=== PATIENT | male | born 1960 | race African-American/Black ===

== ENCOUNTER 2017-06-06 06:03 | Inpatient (IN) | payer BC, MEDICAID ==
[~2017-06-06] VITALS: Ht 182.9 cm; Wt 58.5 kg
[2017-06-06] MEDS ORDERED: ONDANSETRON HCL 4MG/2ML VIAL IV STA (06:35)
[2017-06-06] MEDS ORDERED: SODIUM CHLORIDE 0.9% 1,000 ML IV ONE (06:35)
[2017-06-06] MEDS ORDERED: MORPHINE SULFATE 4 MG/ML CPJ (NOT FOR IM USE) IV STA (06:35)
[2017-06-06 06:53] LABS: HEMATOCRIT. 33.5 % (42.0-52.0); HEMOGLOBIN. 11.5 g/dL (14.0-18.0); MEAN CORPUSCULAR HEMOGLOBIN 29.8 pg (28.0-32.0); MEAN CORPUSCULAR VOLUME 87.1 fL (80.0-94.0); MEAN PLATELET VOLUME 8.4 fl (7.4-10.4); PLATELET 144 x1000/uL (130-400); RED BLOOD CELL COUNT 3.84 mill/uL (4.7-6.1); RED CELL DISTRIBUTION WIDTH 16.5 % (11.6-14.6)
[2017-06-06 07:01] LABS: INR 1.1; PROTHROMBIN TIME 11.7 sec (9.4-11.6)
[2017-06-06 07:03] LABS: CARBON DIOXIDE 28 mEq/L (21-32); CHLORIDE 97 mEq/L (98-107)
[2017-06-06 07:10] LABS: ETHANOL BLOOD < 10 mg/dL; TROPONIN I < 0.02 ng/mL (0.00-0.04)
[2017-06-06] MEDS ORDERED: CLINDAMYCIN 600 MG in DEXTROSE 5% WATER 50 ML IV ONE (07:30)
[2017-06-06] MEDS ORDERED: SODIUM CHLORIDE 0.9% 1000ML BAG (SEPSIS BOLUS) IV ONE (07:30)
[2017-06-06] MEDS ORDERED: CEFTRIAXONE 1 G PREMIX 50 ML IV ONE (07:30)
[2017-06-06] MEDS ORDERED: CLINDAMYCIN 600MG PREMIX 50 ML IV SCH (08:15)
[2017-06-06] MEDS ORDERED: IOHEXOL-300 100 ML BOTTLE ONE (08:36)
[2017-06-06 08:42] LABS: PLATELET ESTIMATE NORMAL
[2017-06-06 10:00] VITALS: BP 87/56
[2017-06-06 10:02] LABS: CLARITY URINE CLEAR (CLEAR); COLOR URINE YELLOW (YELLOW); GLUCOSE URINE 3+ (NEGATIVE); KETONES URINE NEGATIVE (NEGATIVE); LEUKOCYTE ESTERASE URINE NEGATIVE (NEGATIVE); NITRITE URINE NEGATIVE (NEGATIVE); OCCULT BLOOD URINE NEGATIVE (NEGATIVE); PROTEIN URINE NEGATIVE (NEGATIVE); SPECIFIC GRAVITY URINE 1.018 (1.005-1.030); UROBILINOGEN URINE 0.2 E.U./dL (0.2-1.0)
[2017-06-06 10:21] LABS: *AMPHETAMINES SCREEN URINE NEGATIVE (NEGATIVE); *BARBITURATES SCREEN URINE NEGATIVE (NEGATIVE); *BENZODIAZEPINES SCREEN URINE NEGATIVE (NEGATIVE); *COCAINE SCREEN URINE NEGATIVE (NEGATIVE); CANNABINOID URINE SCREEN NEGATIVE (NEGATIVE); METHADONE URINE SCREEN NEGATIVE (NEGATIVE); OPIATES URINE SCREEN PRESUMTIVE POSITIVE (NEGATIVE); PHENCYCLIDINE URINE SCREEN NEGATIVE (NEGATIVE)
[2017-06-06] MEDS ORDERED: DEXTROSE 50% WATER 50ML SYRINGE IV PRN (10:45)
[2017-06-06] MEDS ORDERED: SITA1TAB6 PO (11:03)
[2017-06-06 11:30] VITALS: BP 87/56
[2017-06-06] MEDS ORDERED: IPRATROPIUM/ALBUTEROL 0.5-3(2.5)MG/3ML NEB HHN PRN (11:30)
[2017-06-06] MEDS ORDERED: BLOOD SUGAR DIAGNOSTIC STRIP TEST SCH (11:45)
[2017-06-06] MEDS: BLOOD SUGAR DIAGNOSTIC STRIP TEST SCH ×3 (12:41→20:31)
[2017-06-06 12:47] VITALS: BP 87/56
[2017-06-06] MEDS ORDERED: NICOTINE 21MG PATCH TD SCH (13:00)
[2017-06-06 13:07] LABS: HEPATITIS B SURFACE ANTIGEN NEGATIVE
[2017-06-06] MEDS: ENOXAPARIN 40MG/0.4ML SYR SUBCUT SCH (13:25)
[2017-06-06] MEDS: AMPICILLIN SOD IV SCH ×2 (13:26→18:25)
[2017-06-06] MEDS: WATER IV SCH ×2 (13:26→18:25)
[2017-06-06] MEDS: SULBACTAM NA IV SCH ×2 (13:26→18:25)
[2017-06-06] MEDS: DEXT 5% IV SCH ×2 (13:26→18:25)
[2017-06-06] MEDS: INSULIN LISPRO 100 UNITS/ML SUBCUT SCH ×3 (13:27→20:30)
[2017-06-06 13:36] LABS: HEPATITIS A AB IGM NEGATIVE (NEGATIVE)
[2017-06-06 14:07] LABS: HEPATITIS B CORE AB IGM REACTIVE
[2017-06-06] MEDS: IPRATROPIUM/ALBUTEROL 0.5-3(2.5)MG/3ML NEB HHN SCH ×2 (14:31→21:19)
[2017-06-06] MEDS: ACETYLCYSTEINE 100MG/ML 10% VIAL 4ML INH SCH ×2 (14:31→21:23)
[2017-06-06] MEDS ORDERED: DOCUSATE SODIUM 100MG CAPSULE PO PRN (15:00)
[2017-06-06] MEDS ORDERED: CLONIDINE 0.1MG TABLET PO PRN (15:00)
[2017-06-06] MEDS ORDERED: MAGNESIUM/ALUMINUM HYDROXIDE/SIMETHICONE 30ML UDC PO PRN (15:00)
[2017-06-06] MEDS ORDERED: IPRATROPIUM/ALBUTEROL 0.5-3(2.5)MG/3ML NEB INH PRN (15:00)
[2017-06-06] MEDS ORDERED: ENOXAPARIN 40MG/0.4ML SYR SUBCUT SCH (15:00)
[2017-06-06] MEDS ORDERED: ONDANSETRON HCL 4MG/2ML VIAL IV PRN (15:00)
[2017-06-06] MEDS: SODIUM CHLORIDE 0.9% 1,000 ML IV SCH (15:25)
[2017-06-06] MEDS: HYDROCODONE/ACETAMINOPHEN 5/325MG TABLET PO PRN (15:43)
[2017-06-06 16:00] VITALS: BP 99/62
[2017-06-06 20:00] VITALS: BP 97/59
[2017-06-06] MEDS: PROMETHAZINE/DEXTROMETHORPHAN 6.25-15MG/5ML BOTTLE 120ML PO SCH (20:06)
[2017-06-06] MEDS: ACETAMINOPHEN 325MG TABLET PO PRN (20:40)
[2017-06-06 23:18] LABS: CREATINE KINASE 31 IU/L (39-308); CREATINE KINASE MB FRACTION 0.8 ng/mL (0.5-3.6); TROPONIN I < 0.02 ng/mL (0.00-0.04)
[2017-06-07] VITALS: BP 92/53
[2017-06-07] MEDS: DEXT 5% IV SCH ×4 (00:06→20:41)
[2017-06-07] MEDS: WATER IV SCH ×4 (00:06→20:41)
[2017-06-07] MEDS: AMPICILLIN SOD IV SCH ×4 (00:06→20:41)
[2017-06-07] MEDS: SULBACTAM NA IV SCH ×4 (00:06→20:41)
[2017-06-07] MEDS: IPRATROPIUM/ALBUTEROL 0.5-3(2.5)MG/3ML NEB HHN SCH ×4 (03:00→21:03)
[2017-06-07 04:00] VITALS: BP 103/68
[2017-06-07] MEDS ORDERED: VANCOMYCIN 1500MG in DEXTROSE 5% WATER 250ML IV SCH (04:00)
[2017-06-07] MEDS: SODIUM CHLORIDE 0.9% 1,000 ML IV SCH (04:08)
[2017-06-07] MEDS: PROMETHAZINE/DEXTROMETHORPHAN 6.25-15MG/5ML BOTTLE 120ML PO SCH ×4 (04:08→20:41)
[2017-06-07 06:23] LABS: HEMATOCRIT. 30.6 % (42.0-52.0); HEMOGLOBIN. 10.3 g/dL (14.0-18.0); MEAN CORPUSCULAR HEMOGLOBIN 29.2 pg (28.0-32.0); MEAN PLATELET VOLUME 9.2 fl (7.4-10.4); PLATELET 146 x1000/uL (130-400); RED BLOOD CELL COUNT 3.52 mill/uL (4.7-6.1); RED CELL DISTRIBUTION WIDTH 16.8 % (11.6-14.6)
[2017-06-07] MEDS: INSULIN LISPRO 100 UNITS/ML SUBCUT SCH ×4 (06:34→22:26)
[2017-06-07] MEDS: BLOOD SUGAR DIAGNOSTIC STRIP TEST SCH ×4 (06:34→21:00)
[2017-06-07 08:00] VITALS: BP 102/68
[2017-06-07] MEDS: NICOTINE 21MG PATCH TD SCH (08:21)
[2017-06-07] MEDS: ENOXAPARIN 40MG/0.4ML SYR SUBCUT SCH (08:22)
[2017-06-07 08:36] LABS: CARBON DIOXIDE 26 mEq/L (21-32); CHLORIDE 103 mEq/L (98-107); CREATINE KINASE 20 IU/L (39-308); HDL CHOLESTEROL 47 mg/dL (40-59); LDL CHOLESTEROL 27 mg/dL (5-100)
[2017-06-07 08:41] LABS: CREATINE KINASE MB FRACTION 0.9 ng/mL (0.5-3.6); TROPONIN I < 0.02 ng/mL (0.00-0.04)
[2017-06-07] MEDS: ACETYLCYSTEINE 100MG/ML 10% VIAL 4ML INH SCH (09:18)
[2017-06-07] MEDS: HYDROCODONE/ACETAMINOPHEN 5/325MG TABLET PO PRN (11:16)
[2017-06-07 12:00] VITALS: BP 103/64
[2017-06-07] MEDS ORDERED: POTASSIUM CHLORIDE 20MEQ TABLET SR PO NR (12:00)
[2017-06-07 16:00] VITALS: BP 94/54
[2017-06-07] MEDS ORDERED: VANCOMYCIN 1 G PREMIX 200 ML IV SCH (16:00)
[2017-06-07] MEDS: VANCOMYCIN 1 G PREMIX 200 ML IV SCH ×2 (16:33→22:46)
[2017-06-07] MEDS: ACETAMINOPHEN 325MG TABLET PO PRN (16:34)
[2017-06-07 17:15] LABS: PLATELET ESTIMATE NORMAL
[2017-06-07 20:00] VITALS: BP 138/60
[2017-06-08] MEDS: WATER IV SCH ×4 (02:50→20:18)
[2017-06-08] MEDS: DEXT 5% IV SCH ×4 (02:50→20:18)
[2017-06-08] MEDS: AMPICILLIN SOD IV SCH ×4 (02:50→20:18)
[2017-06-08] MEDS: SULBACTAM NA IV SCH ×4 (02:50→20:18)
[2017-06-08] MEDS: PROMETHAZINE/DEXTROMETHORPHAN 6.25-15MG/5ML BOTTLE 120ML PO SCH ×4 (02:50→20:18)
[2017-06-08] MEDS: SODIUM CHLORIDE 0.9% 1,000 ML IV SCH ×3 (03:01→21:15)
[2017-06-08] MEDS: IPRATROPIUM/ALBUTEROL 0.5-3(2.5)MG/3ML NEB HHN SCH ×4 (03:04→20:42)
[2017-06-08 04:00] VITALS: BP 109/71
[2017-06-08] MEDS: VANCOMYCIN 1 G PREMIX 200 ML IV SCH ×3 (06:40→21:11)
[2017-06-08 06:44] LABS: HEMATOCRIT. 27.9 % (42.0-52.0); HEMOGLOBIN. 9.6 g/dL (14.0-18.0); MEAN CORPUSCULAR HEMOGLOBIN 29.6 pg (28.0-32.0); MEAN CORPUSCULAR VOLUME 86.3 fL (80.0-94.0); PLATELET 135 x1000/uL (130-400); RED BLOOD CELL COUNT 3.23 mill/uL (4.7-6.1); RED CELL DISTRIBUTION WIDTH 16.9 % (11.6-14.6)
[2017-06-08] MEDS: INSULIN LISPRO 100 UNITS/ML SUBCUT SCH ×4 (06:45→21:00)
[2017-06-08] MEDS: BLOOD SUGAR DIAGNOSTIC STRIP TEST SCH ×4 (06:45→21:09)
[2017-06-08 07:46] LABS: CHLORIDE 105 mEq/L (98-107)
[2017-06-08 08:00] VITALS: BP 106/68
[2017-06-08 08:02] LABS: CARBON DIOXIDE 27 mEq/L (21-32)
[2017-06-08] MEDS: NICOTINE 21MG PATCH TD SCH (08:47)
[2017-06-08] MEDS: ENOXAPARIN 40MG/0.4ML SYR SUBCUT SCH (08:47)
[2017-06-08] MEDS ORDERED: POTASSIUM CHLORIDE 20MEQ TABLET SR PO NR (11:45)
[2017-06-08 12:27] VITALS: BP 116/75
[2017-06-08 12:35] LABS: PLATELET ESTIMATE NORMAL
[2017-06-08 16:17] VITALS: BP 122/71
[2017-06-08 20:00] VITALS: BP 127/82
[2017-06-08] MEDS: HYDROCODONE/ACETAMINOPHEN 5/325MG TABLET PO PRN (21:40)
[2017-06-09] VITALS: BP 112/72
[2017-06-09] MEDS: IPRATROPIUM/ALBUTEROL 0.5-3(2.5)MG/3ML NEB HHN SCH ×4 (02:10→20:39)
[2017-06-09] MEDS: DEXT 5% IV SCH ×4 (02:20→20:21)
[2017-06-09] MEDS: WATER IV SCH ×4 (02:20→20:21)
[2017-06-09] MEDS: AMPICILLIN SOD IV SCH ×4 (02:20→20:21)
[2017-06-09] MEDS: SULBACTAM NA IV SCH ×4 (02:20→20:21)
[2017-06-09] MEDS: PROMETHAZINE/DEXTROMETHORPHAN 6.25-15MG/5ML BOTTLE 120ML PO SCH ×4 (02:22→20:21)
[2017-06-09 04:00] VITALS: BP 131/87
[2017-06-09 05:49] LABS: HEMATOCRIT. 27.6 % (42.0-52.0); HEMOGLOBIN. 9.1 g/dL (14.0-18.0); MEAN CORPUSCULAR HEMOGLOBIN 28.7 pg (28.0-32.0); MEAN CORPUSCULAR VOLUME 87.1 fL (80.0-94.0); PLATELET 145 x1000/uL (130-400); RED BLOOD CELL COUNT 3.16 mill/uL (4.7-6.1); RED CELL DISTRIBUTION WIDTH 16.6 % (11.6-14.6)
[2017-06-09 06:25] LABS: CHLORIDE 104 mEq/L (98-107)
[2017-06-09 06:35] LABS: CARBON DIOXIDE 25 mEq/L (21-32); VANCOMYCIN TROUGH 15.5 ug/mL (5.0-10.0)
[2017-06-09] MEDS: BLOOD SUGAR DIAGNOSTIC STRIP TEST SCH ×4 (06:42→20:45)
[2017-06-09] MEDS: VANCOMYCIN 1 G PREMIX 200 ML IV SCH (06:45)
[2017-06-09] MEDS: INSULIN LISPRO 100 UNITS/ML SUBCUT SCH ×4 (06:48→21:28)
[2017-06-09] MEDS: SODIUM CHLORIDE 0.9% 1,000 ML IV SCH ×2 (06:49→18:45)
[2017-06-09 08:00] VITALS: BP 137/87
[2017-06-09] MEDS: ENOXAPARIN 40MG/0.4ML SYR SUBCUT SCH (08:40)
[2017-06-09] MEDS: NICOTINE 21MG PATCH TD SCH (08:41)
[2017-06-09 12:00] VITALS: BP 137/82
[2017-06-09] MEDS: HYDROCODONE/ACETAMINOPHEN 5/325MG TABLET PO PRN ×3 (12:18→22:46)
[2017-06-09] MEDS: ACETAMINOPHEN 325MG TABLET PO PRN ×2 (12:18→20:21)
[2017-06-09] MEDS: VANCOMYCIN 1250MG in DEXTROSE 5% WATER 250ML IV SCH ×2 (15:06→21:27)
[2017-06-09] MEDS ORDERED: POTASSIUM CHLORIDE 20MEQ TABLET SR PO NR (15:15)
[2017-06-09 17:21] LABS: PLATELET ESTIMATE NORMAL
[2017-06-09 20:00] VITALS: BP 134/94
[2017-06-10] VITALS: BP 122/79
[2017-06-10] MEDS: IPRATROPIUM/ALBUTEROL 0.5-3(2.5)MG/3ML NEB HHN SCH ×2 (01:45→07:29)
[2017-06-10] MEDS: SULBACTAM NA IV SCH (02:43)
[2017-06-10] MEDS: AMPICILLIN SOD IV SCH (02:43)
[2017-06-10] MEDS: WATER IV SCH (02:43)
[2017-06-10] MEDS: PROMETHAZINE/DEXTROMETHORPHAN 6.25-15MG/5ML BOTTLE 120ML PO SCH (02:43)
[2017-06-10] MEDS: DEXT 5% IV SCH (02:43)
[2017-06-10 04:00] VITALS: BP 135/92
[2017-06-10 06:39] LABS: HEMATOCRIT. 28.6 % (42.0-52.0); HEMOGLOBIN. 9.6 g/dL (14.0-18.0); MEAN CORPUSCULAR HEMOGLOBIN 29.1 pg (28.0-32.0); MEAN CORPUSCULAR VOLUME 86.4 fL (80.0-94.0); MEAN PLATELET VOLUME 8.6 fl (7.4-10.4); PLATELET 187 x1000/uL (130-400); RED BLOOD CELL COUNT 3.31 mill/uL (4.7-6.1); RED CELL DISTRIBUTION WIDTH 17.1 % (11.6-14.6)
[2017-06-10] MEDS: BLOOD SUGAR DIAGNOSTIC STRIP TEST SCH (06:51)
[2017-06-10] MEDS: INSULIN LISPRO 100 UNITS/ML SUBCUT SCH (06:56)
[2017-06-10] MEDS: HYDROCODONE/ACETAMINOPHEN 5/325MG TABLET PO PRN (06:57)
[2017-06-10] MEDS: VANCOMYCIN 1250MG in DEXTROSE 5% WATER 250ML IV SCH (06:58)
[2017-06-10 07:02] LABS: CARBON DIOXIDE 31 mEq/L (21-32); CHLORIDE 102 mEq/L (98-107)
[2017-06-10 08:00] VITALS: BP 147/94
[2017-06-10 08:34] VITALS: BP 147/84
[2017-06-10 16:58] LABS: PLATELET ESTIMATE NORMAL
== END 2017-06-10 09:05 | disposition home or self-care (01) | DRG 720 ==
LOC: ER 07:00 → 5WST 08:30 → ENRESERV 09:14
PROVIDERS: ADMIT Internal Medicine; ATTEND Internal Medicine
DX: A41.9 Sepsis, unspecified organism (principal); J96.01 Acute respiratory failure with hypoxia; E43 Unspecified severe protein-calorie malnutrition; J85.1 Abscess of lung with pneumonia; J91.8 Pleural effusion in other conditions classified elsewhere; J44.0 Chronic obstructive pulmonary disease with (acute) lower respiratory infection; K86.1 Other chronic pancreatitis; I10 Essential (primary) hypertension; J98.11 Atelectasis; E11.65 Type 2 diabetes mellitus with hyperglycemia; Z77.098 Contact with and (suspected) exposure to other hazardous, chiefly nonmedicinal, chemicals; B19.10 Unspecified viral hepatitis B without hepatic coma; J44.1 Chronic obstructive pulmonary disease with (acute) exacerbation; F10.10 Alcohol abuse, uncomplicated; F17.210 Nicotine dependence, cigarettes, uncomplicated; Z68.1 Body mass index [BMI] 19.9 or less, adult; Z83.3 Family history of diabetes mellitus
CPT/HCPCS: 36415; 71010; 71260; 76700; 80048; 80053; 80061; 80202; 80305; 81001; 82550; 82553; 82962; 83036; 83605; 83690; 83735; 83880; 84443; 84484; 85025; 85610; 86705; 86709; 86803; 87040; 87070; 87086; 87186; 87340; 87430; 87804; 93005; 93970; 94640; 94664; 96361; 96365; 96375; 99291; C1893; G0482; J0295; J0696; J1650; J1815; J2270; J2405; J3370; J3490; J7030; J7040; J7060; J7608; J7620; Q9967